=== PATIENT | female | born 2000 | race Caucasian/White ===

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

== ENCOUNTER 2022-03-10 14:34 | Emergency (ER) | payer OTHER, SELFPAY ==
[2022-03-10 14:35] VITALS: BP 132/82; PULSE 100; RESP 18; TEMP 36.7; O2SAT 99; BMI 30.2
[2022-03-10 14:52] VITALS: BMI 30.2
--- NOTE | 2022-03-10 14:54 | XR_ITS ---
PROCEDURE INFORMATION: Exam: XR Chest Exam date and time: 03/10/2022 3:46 PM Age: 21 years old Clinical indication: Cough and shortness of breath; Patient HX: Cough and SOA TECHNIQUE: Imaging protocol: Radiologic exam of the chest. Views: 1 view. COMPARISON: CR XR CHEST 2V 02/10/2020 10:59 PM FINDINGS: Lungs: Unremarkable. No consolidation. Pleural spaces: Unremarkable. No pleural effusion. No pneumothorax. Heart/Mediastinum: Unremarkable. No cardiomegaly. Bones/joints: Unremarkable. IMPRESSION: No acute findings.
[2022-03-10 14:58] LABS: Influenza A, PCR Not Detected (NotDetected); Influenza B, PCR Not Detected (NotDetected)
--- NOTE | 2022-03-10 15:13 | PC.NURSE ---
pt sitting up in bed, nothing needed at this time
--- NOTE | 2022-03-10 15:14 | PC.NURSE ---
DR. GARCIA AT BEDSIDE
--- NOTE | 2022-03-10 15:22 | HMH.EDGENADL ---
Discharge Plan Disposition Patient Disposition: Home, Self-Care Condition: Good Prescriptions Prescriptions: No Action amitriptyline 100 mg tablet 100 mg PO HS Nurtec ODT 75 mg tablet,disintegrating 75 mg PO PRN folic acid 1 mg tablet 2 mg PO DAILY Qty: 30 11RF lamotrigine [Lamictal] 100 mg tablet See Rx Instructions PO DAILY 30 Days Qty: 75 2RF Rx Instructions: 150mg (1.5 tablet) q AM and 100mg (1 tablet) qHS. Schedule important. Avoid missed or late dosages. epinephrine 0.3 MG/0.3 ML auto-injector 0.3 mg IM ONCE PRN (Reason: Allergic Reaction) Qty: 1 0RF Referrals Follow up/Referrals: Provider,Referral, MD [Primary Care Provider] - See instructions Activity Restrictions/Add. Instructions Additional Instructions/Restrictions: ADDITIONAL INSTRUCTIONS FOR COVID-19: Rest, drink plenty of fluids. Tylenol or Ibuprofen for fever and/or aches and pains. Monitor your symptoms. IF YOU HAVE AN EMERGENCY WARNING SIGN (INCLUDING TROUBLE BREATHING), SEEK EMERGENCY MEDICAL CARE IMMEDIATELY. COVID-19 Isolation: People with COVID-19 should isolate for 5 days. Then if they are asymptomatic (no symptoms) or their symptoms are resolving (without fever for 24 hours), follow that by 5 days of wearing a mask when around others to minimize the risk of infecting people you encounter. If you test positive for COVID-19 and never develop symptoms, day 0 is the day of your positive viral test (based on the date you were tested) and day 1 is the first full day after your positive test. If you develop symptoms after testing positive, your 5-day isolation period must start over. Day 0 is your first day of symptoms. Day 1 is the first full day after your symptoms developed. What to do: Stay in a separate room from other household members, if possible. Use a separate bathroom, if possible. Avoid contact with other members of the household and pets. Don?t share personal household items, like cups, towels, and utensils. Wear a mask when around other people if able. Clinical Impressions Clinical Impression: COVID-19 virus infection Instructions Patient Instructions: DI for COVID-19 (Suspected or Confirmed ) Discharge ED Provider: Markus Manzano General Adult HPI General Chief complaint: Shortness of Breath/Dyspnea Stated complaint: Covid+,SOA Time Seen by Provider: 03/10/22 15:00 History of Present Illness HPI narrative: Patient states that she was tested positive for COVID on Friday, 2 days ago. Her chief complaint is shortness of breath. Feels like it is hard to get a deep breath, states she has episodes where she has to gasp for breath. She has a mild cough. No fever. She has some sinus drainage and sore throat. Some mild diarrhea. She has been vaccinated against COVID. Cruise Staff Member reports that patient's father texted her that patient called him and she was hyperventilating on the phone and he felt she was having an anxiety attack. Related Data Home Medications Medication Instructions Recorded Confirmed amitriptyline 100 mg tablet 100 mg PO HS 02/06/21 02/06/21 rimegepant 75 mg disintegrating 75 mg PO PRN 02/06/21 02/06/21 tablet (Nurtec ODT) Previous Rx's Medication Instructions Recorded epinephrine 0.3 mg/0.3 mL 0.3 mg (0.3 mL) IM ONCE PRN 12/06/20 injection, auto-injector Allergic Reaction #1 ea folic acid 1 mg tablet 2 mg PO DAILY epilepsy with 02/06/21 antiseizure medication #30 tabs lamotrigine 100 mg tablet See Rx Instructions PO DAILY 30 02/06/21 (Lamictal) days #75 tabs Allergies Allergy/AdvReac Type Severity Reaction Status Date / Time Penicillins Allergy Severe Swelling Verified 02/06/21 13:05 of Lip/Tongue/Throat PFSH [facility] Disclaimer: The information contained in this section may have been updated after the patient was seen, as this information can be updated by other users. Surgical History (Updated 03/10/22 @ 15:40 by Summer Rebolledo
--- NOTE | 2022-03-10 15:30 | PC.NURSE ---
0259 PT ASKED IF SHE NEEDED CXR, EXPLAINED THAT IT WAS ORDERED BY ED MD FOR SHORTNESS OF BREATH. PT STATES SHE WANTS TO GO HOME. DISCUSSED POC, INFORMED PT CXR COULD HELP WITH CARE. AGREES TO TREATMENT
--- NOTE | 2022-03-10 15:34 | PC.NURSE ---
ROUNDED ON PT, NO NEEDS AT THIS TIME. FAMILY AT BEDSIDE
--- NOTE | 2022-03-10 15:40 | PC.NURSE ---
XR AT BEDSIDE
[2022-03-10 15:45] VITALS: BP 132/82; PULSE 93; O2SAT 98
[2022-03-10 16:03] LABS: Coronavirus 19, PCR Detected (NotDetected)
--- NOTE | 2022-03-10 16:21 | PC.NURSE ---
DR. GARCIA AT BEDSIDE TO DISCUSS POC WITH PT AND FAMILY
--- NOTE | 2022-03-10 16:34 | PC.NURSE ---
PT walked in hallway oxygen sat was 97 on RA, pt tolerated well.
[2022-03-10 16:36] VITALS: BP 132/82; PULSE 85; RESP 18; TEMP 36.7; O2SAT 93
== END 2022-03-10 16:39 | disposition home or self-care (01) ==
PROVIDERS: Emergency Provider Emergency Medicine
DX: U07.1 COVID-19 (principal); J02.9 Acute pharyngitis, unspecified; R06.02 Shortness of breath; R06.4 Hyperventilation; R05.9 Cough, unspecified; R19.7 Diarrhea, unspecified; G40.909 Epilepsy, unspecified, not intractable, without status epilepticus; F17.290 Nicotine dependence, other tobacco product, uncomplicated; F41.9 Anxiety disorder, unspecified; Z79.899 Other long term (current) drug therapy; Z88.0 Allergy status to penicillin
CPT/HCPCS: 71045; 99283; C9803; U0003; U0005

== ENCOUNTER → 2022-08-02 12:26 | Outpatient (CLI) | payer OTHER, SELFPAY | PROVIDERS: Visit Provider Internal Medicine Adolescent Medicine | DX: R56.9 Unspecified convulsions (principal) | CPT/HCPCS: 95819 ==

== ENCOUNTER 2024-02-16 12:39 | Emergency (ER) | payer SELFPAY ==
[2024-02-16 12:50] VITALS: BP 120/82; PULSE 125; RESP 20; TEMP 38.1; O2SAT 98; BMI 31.4
[2024-02-16 13:08] LABS: UTC Influenza A Antigen Negative (Negative); UTC Influenza B Antigen Negative (Negative)
--- NOTE | 2024-02-16 13:14 | ED_ITS ---
Discharge Plan Disposition Patient Disposition: Home, Self-Care Condition: Good Prescriptions Prescriptions: New lvoxljokfdnlsgw-mqhmquinj-JI [Bromfed DM] 2-30-10 mg/5 mL Syrup 5 ml PO Q6H PRN (Reason: Cough) Qty: 240 0RF azithromycin [Zithromax] 250 mg tablet 250 mg PO UD DOSE PK Qty: 6 0RF Rx Instructions: Take two (2) tablets today, then one (1) tablet days #2 thru #5 ondansetron 4 mg Tablet,Disintegrating 4 mg PO Q8H PRN (Reason: Nausea) Qty: 12 0RF Referrals Follow up/Referrals: Provider,Referral, MD [Primary Care Provider] - See instructions Activity Restrictions/Add. Instructions Additional Instructions/Restrictions: Drink plenty of fluids. Take tylenol or ibuprofen for pain or fever. Take the medications as directed. Follow up with your regular doctor. GO TO THE ER FOR ANY WORSENING SYMPTOMS Clinical Impressions Clinical Impression: Bronchitis, Acute viral syndrome, Exposure to 2019 novel coronavirus Stand Alone Forms Stand Alone Forms: Work/School Release Instructions Patient Instructions: Acute Bronchitis, DI for Acute Bronchitis Print Language Print Language: [place] Discharge ED Provider: Graham Malave [facility] General Stated complaint: vomiting, dizziness, soa Mode of Arrival: Ambulatory Source of Information: Patient Limitations: No Limitations Time Seen by Provider: 02/16/24 13:12 Description of Symptoms (Recalled from Triage Doc. by RN): PATIENT C/O FEVER, CHILLS, BODY ACHES, VOMITING, DIZZINESS AND CONGESTION X 6 DAYS HEENT Symptoms (Recalled from RN notes): Yes Resp Symptoms (Recalled from RN notes): No Skin Symptoms (Recalled from RN notes): No MS Symptoms (Recalled from RN notes): No Functional Status (Recalled from RN notes): WNL Related Data Previous Rx's ?Medication ?Instructions ?Recorded azithromycin 250 mg tablet 250 mg PO UD DOSE PK #6 tabs 02/16/24 (Zithromax) qczzbnlgljqxqdy-ltoekxtirbjzkrb-DM 5 ml PO Q6H PRN Cough #240 mL 02/16/24 2 mg-30 mg-10 mg/5 mL oral syrup (Bromfed DM) ondansetron 4 mg disintegrating 4 mg PO Q8H PRN Nausea #12 tabs 02/16/24 tablet Allergies Allergy/AdvReac Type Severity Reaction Status Date / Time Penicillins Allergy Severe Swelling Verified 02/06/21 13:05 of Lip/Tongue/Throat Worker's Comp Is this a Worker's Comp case?: No [facility] Disclaimer: The information contained in this section may have been updated after the patient was seen, as this information can be updated by other users. Surgical History (Updated 03/10/22 @ 15:40 by Smumer Oneal RN) History of appendectomy Family History (Updated 03/10/22 @ 15:40 by Summer Oneal RN) Other No significant family history Social History (Updated 03/10/22 @ 15:40 by Summer Oneal RN) Smoking Status: Current some day smoker tobacco type: e-cigarettes alcohol intake: never substance use type: other current occupational status: student household members: family housing: house current occupation: [employer] current occupational exposures/hazards: No caffeine: Yes ROS Obtained: Yes All systems reviewed & no additional complaints except as documented Constitutional Constitutional: Reports poor appetite Eyes Eyes: Reports system reviewed and no additional complaints, except as documented ENT Ears, Nose, Mouth, and Throat: Reports as per HPI Cardiovascular Cardiovascular: Reports system reviewed and no additional complaints, except as documented and Denies chest pain Respiratory Respiratory: Denies shortness of breath, Reports chest congestion, Reports coug h, Denies stridor and Denies wheezing Gastrointestinal Gastrointestingal: Reports system reviewed and no additional complaints, except as documented; Denies abdominal pain, diarrhea or vomiting Musculoskeletal Musculoskeletal: Reports system reviewed and no additional complaints, except as documented and Denies arthralgias Integumentary/Breasts Skin/Breast: Reports system reviewed and no additional complaints, except as documented and Denies rash Neurologic Neurologic: Denies paresthesias Allergic/Immunologic Allergic/Immunologic: Denies wheezing Physical Exam General General appearance: alert and in no apparent distress Eye Eye exam: Present normal appearance, PERRL and EOMI ENT ENT exam: Present mucous membranes moist and normal external ear exam Expanded ENT Exam External ear exam: Present normal external inspection TM/Canal exam: Bilateral TM: erythema and bulging Nose exam: Absent sinus tenderness Nasal speculum exam: Bilateral: normal Mouth exam: Present normal external inspection; Absent drooling Teeth exam: Present normal inspection Throat exam: Present tonsillar erythema and tonsillomegaly Neck Neck exam: Present normal inspection, full ROM and trachea midline; Absent tenderness, lymphadenopathy or thyromegaly Chest Chest inspection: Present normal inspection and symmetric chest wall rise; Absent tenderness or rash Respiratory Respiratory exam: Present normal lung sounds bilaterally; Absent respiratory distress, wheezes, stridor or accessory muscle use Cardiovascular Cardiovascular exam: Present regular rate, normal rhythm and normal heart sounds Abdominal Exam Abdominal exam: Present soft; Absent distention, tenderness, guarding, rebound or rigidity Extremities Exam Extremities exam: Present normal inspection, full ROM and normal capillary refill; Absent tenderness or calf tenderness Back Exam Back exam: Present normal inspection and full ROM; Absent tenderness Neurological Exam Neurological exam: Present alert and oriented X3 Psychiatric Psychiatric exam: Present normal affect and normal mood Skin Skin exam: Present warm, dry, intact and normal color Lymphatic Lymphatic Findings: no adenopathy Medical Decision Making Medical Records Medical records reviewed: No I reviewed the patient's medical records. Screening: Per USPSTF and CDC recommendations, given the prevalence of disease in our region, it is our hospital?s policy to screen for HIV and viral Hepatitis for all patients aged 18 and over and those with ongoing risk factors. [place] Inquiry Pt receiving controlled substance: No Vital Signs: 02/16/24 12:50 Temperature 100.5 F H Temperature Source Oral Pulse Rate [Left Brachial] 125 H Respiratory Rate 20 Blood Pressure [Left Arm] 120/82 Blood Pressure Mean [Left Arm] 94 Blood Pressure Source [Left Arm] Automatic Cuff Blood Pressure Position [Left Arm] Sitting 02 Sat by Pulse Oximetry 98 Oxygen Delivery Method Room Air Lab Data Lab results reviewed: Yes I reviewed the patient's lab results. Lab Results 02/16/24 12:54: Influenza Type A Ag Negative, Influenza Type B Ag Negative
[2024-02-16 13:36] LABS: UTC Strep Screen (Rapid) Negative (Negative)
[2024-02-16 13:40] VITALS: BP 120/82; PULSE 125; RESP 20; TEMP 38.1; O2SAT 98
[2024-02-16] MEDS: ONDANSETRON 4MG ODT 4 MG SL (13:42)
== END 2024-02-16 13:44 | disposition home or self-care (01) ==
PROVIDERS: Emergency Provider Nurse Practitioner Family
DX: J20.9 Acute bronchitis, unspecified (principal); B34.9 Viral infection, unspecified; Z20.828 Contact with and (suspected) exposure to other viral communicable diseases; R11.10 Vomiting, unspecified; R42 Dizziness and giddiness; R50.9 Fever, unspecified; R09.81 Nasal congestion; R63.8 Other symptoms and signs concerning food and fluid intake
CPT/HCPCS: 87635; 87804; 87880; 99212; G0381; Q0162

== ENCOUNTER 2024-12-28 11:26 | Emergency (ER) | payer OTHER, SELFPAY ==
[2024-12-28 11:30] VITALS: BP 138/84; PULSE 66; RESP 15; TEMP 36.5; O2SAT 100; BMI 29.6
--- OUTSIDE RECORDS SUMMARY | 2024-12-28 11:44 | XMS_ITS | Clinical Summary ---
Author Organization Healthcare Address [address] [place] [address] Care Team Providers Care Lithopress Operator Name Role Phone Sally Pinon APRN Primary Care Provider [phone] Family History Medical History Relation Name Comments Vision loss Other 1 Conversions - Other Other 2 Frequent headaches Relation Name Status Comments Other 1 Other 2 Social History Tobacco Use Types Packs/Day Years Used Date Smoking Tobacco: Never Alcohol Use Standard Drinks/Week Comments No 0 (1 standard drink = 0.6 oz pur e alcohol) Comments Unknown Sex and Gender Information Value Date Recorded Sex Assigned at Not on file Legal Sex Female 6:27 PM EDT Gender Identity Not on file Sexual Orientation Not on file Last Filed Vital Signs Vital Sign Reading Time Taken Comments Blood Pressure - - Pulse - - Temperature - - Respiratory Rate - - Oxygen Saturation - - Inhaled Oxygen Concentration - - Weight 78.3 kg (172 lb 8.9 oz) 10/17/2016 10:20 AM EDT Height 158.8 cm (5' 2.5 ) 10/17/2016 10:20 AM ED T Body Mass Index 31.06 10/17/2016 10:20 AM EDT Plan of Treatment Not on file Care Teams Lithopress Operator Relationship Specialty Start Date End Date Sally Pinon APRN [address] [place], [place] [id number] PCP - General 08/04/20
--- OUTSIDE RECORDS SUMMARY | 2024-12-28 11:44 | XMS_ITS | Clinical Summary ---
Author Organization [facility] Address [address] [place] [address] Phone Care Team Providers Care Chemical Pathologist Name Role Phone Unavailable Primary Care Provider Unavailabl e Allergies Active Allergy Reactions Criticality Noted Date Comments Penicillins Other (See Comments) Low 04/05/2021 States occurred as infant, unsure of reaction-04/05/2021 Medications lamoTRIgine (LAMICTAL) 100 mg Oral Tablet 02/06/2021 Active Medical History Medical History Date Comments Seizures (HCC) states started a t age [age] years old Social History Tobacco Use Types Packs/Day Years Used Date Smoking Tobacco: Never Smokeless Tobacco: Never Comments No Sex and Gender Information Value Date Recorded Sex Assigned at Not on file Legal Sex Female 2:19 PM EST Gender Identity Not on file Sexual Orientation Not on file Last Filed Vital Signs Vital Sign Reading Time Taken Comments Blood Pressure 98/80 04/05/2021 2:37 PM EST Pulse 108 04/05/2021 2:37 PM EST Temperature 36.8 C (98.2 F) 04/05/2021 2:37 PM EST Respiratory Rate 14 04/05/2021 2:37 PM EST Oxygen Saturation 98% 04/05/2021 2:37 PM EST Inhaled Oxygen Concentration - - Weight 81.2 kg (179 lb) 04/05/2021 2:37 PM EST Height 159.4 cm (5' 2.76 ) 04/05/2021 2:37 PM ES T WITH SHOES Body Mass Index 31.96 04/05/2021 2:37 PM EST Plan of Treatment Health Maintenance Due Date Last Done Comments Annual Wellness Exam 2005 HPV (2 - 2-dose series) 04/30/2015 10/28/2014, 10/28 Meningococcal B Vaccine (1 of 2 - Standard) 2018 Cervical Cancer Screening 08/05/2023 Pap Smear 08/05/2023 DTaP/TDaP/Td (7 - Td or Tdap) 10/28/2024 10/28/2014, 09/09/2006, 09/09/2006, Additional history exists COVID-19 Vaccine ( season) 2024 Influenza Vaccine (#1) 2024 2002 Hepatitis B Vaccine Completed 08/10/2003, 08/10/2003, 05/11/2003, Additional history exists Pneumococcal Vaccine 0-49 Aged Out No longer eligible based on patient's age to complete [place] [phone]
--- OUTSIDE RECORDS SUMMARY | 2024-12-28 11:44 | XMS_ITS | Clinical Summary ---
Author Organization [facility] Address [address] [place] [id number] Care Team Providers Care Director Of Neighborhood Service Center Name Role Phone Sally Pinon LEAD PAINTER-ATM SERVICER Primary Care Provider Source Comments [facility] is fully rolled out with thefollowing exceptions:General Clinical Research [facility] Social History Tobacco Use Types Packs/Day Years Used Date Smoking Tobacco: Never Assessed Comments Unknown Sex and Gender Information Value Date Recorded Sex Assigned at Not on file Legal Sex Female 11:34 AM EDT Gender Identity Not on file Sexual Orientation Not on file Plan of Treatment Health Maintenance Due Date Last Done Comments MMR IMMUNIZATION (1 of 1 - S tandard series) 08/05/2003 DTAP/Tdap/Td IMMUNIZATION (1 - Tdap) 2009 VARICELLA IMMUNIZATION (1 of 2 - 13+ 2-dose series) 08/05/2015 HPV IMMUNIZATION (1 - 3-dose series) 2017 MENINGOCOCCAL B VACCINE (1 o f 2 - Standard) 2018 HEPATITIS B IMMUNIZATION (1 of 3 - 19+ 3-dose series) 2021 AMB SEASONAL FLU VACCINE (#1) 11/22/2024 COVID-19 Vaccine ( - 2023-2 5 season) 2024 HIB IMMUNIZATION Aged Out No longer e ligible based on patient's age to complete this topic IPV IMMUNIZATION Aged Out No longer e ligible based on patient's age to complete this topic MCV4 IMMUNIZATION Aged Out No longer eligible based on patient's age to complete this topic PNEUMOCOCCAL IMMUNIZATION Aged Out No longer eligible based on patient's age to complete this topic Respiratory Syncytial Virus (RSV) <20mo Aged Out No longer eligible b ased on patient's age to complete this topic Insurance [place], [place] [id number] [place] [address] on file Care Teams Director Of Neighborhood Service Center Relationship Specialty Start Date End Date Sally iPnon, LEAD PAINTER-YU [address] [place] [address] PCP - General 08/15/16
--- NOTE | 2024-12-28 12:00 | ED_ITS ---
<Statement entered by Peter Burnett DO - 12/29/24 16:55> I was consulted by the SHAHIDA, and we discussed the complexity of problems being addressed. I approved the treatment and management plan for this patient's care in the emergency department, thus performing a substantive portion of the medical decision making. I evaluated this patient with the midlevel provider. She presented with right mandibular pain. She does not have any difficulty tolerating secretions, no change in the character of her voice, no nuchal rigidity, no difficulty with vertical or lateral rotation of the neck. She has no fevers. No headaches. She does not have any difficulty with swallowing. On physical examination she has tenderness along the right mandibular gumline with no fluctuance to suggest periapical abscess. She has no evidence of facial cellulitis on examination. Her tonsils are absent. There is no asymmetric bulging of the tonsillar pillars. Uvula is midline. She has very poor dentition with multiple caries along the right mandibular teeth. I have very low suspicion for retropharyngeal abscess at this time. We discussed risk and benefits of CT scans and ultimately decided to not pursue workup with CT scans. There was no significant swelling of the face to warrant this. We ultimately decided on performing an inferior alveolar nerve block on the right as well as a periosteal block of the mandibular teeth. We gave further information for the walk-in dentistry clinic at the [facility] and discharged her home with a Medrol Dosepak for reduction of inflammation as well as clindamycin given that she was allergic to penicillins for treatment of dental infection. At this time all questions were answered and all parties were agreeable Peter Burnett DO Discharge Plan Disposition Patient Disposition: Home, Self-Care Prescriptions Prescriptions: New clindamycin HCl [Cleocin HCl] 300 mg capsule 300 mg PO Q8H 7 Days Qty: 21 0RF prednisone 20 mg tablet 20 mg PO BID 7 Days Qty: 14 0RF No Action kvoopdzflwepmnd-tqoziubzc-FV [Bromfed DM] 2-30-10 mg/5 mL Syrup 5 ml PO Q6H PRN (Reason: Cough) Qty: 240 0RF azithromycin [Zithromax] 250 mg tablet 250 mg PO UD DOSE PK Qty: 6 0RF Rx Instructions: Take two (2) tablets today, then one (1) tablet days #2 thru #5 ondansetron 4 mg Tablet,Disintegrating 4 mg PO Q8H PRN (Reason: Nausea) Qty: 12 0RF Referrals Follow up/Referrals: Ricardo Holley MD [Primary Care Provider, Internal Medicine] - See instructions Activity Restrictions/Add. Instructions Additional Instructions/Restrictions: Increase fluids and rest. Take meds as directed. May take Tylenol and ibuprofen for pain as needed. Clinical Impressions Clinical Impression: Dental abscess Instructions Patient Instructions: DI for Tooth Abscess, DI for Dental Pain Print Language Print Language: Japanese Discharge ED Provider: Peter Burnett General Adult HPI <Hariniisa Perez (ED), AIR POLLUTION ENGINEER - Last Filed: 12/28/24 12:41> General Chief complaint: Dental/Oral Stated complaint: Rt side neck pain Time Seen by Provider: 12/28/24 11:41 Mode of Arrival: Ambulatory Source of Information: Patient Description of Symptoms (Recalled from ER Triage Doc. by RN): patient presents to the ED for a right sided tooth abcess. she noticed it 9 days ago. she was sent from her doctors office for further evaluation. she ahs not been prescribed anythign for the abcess. History of Present Illness HPI narrative: 24-year-old female presents to the ED today for complaint of right sided tooth abscess. She noticed it 9 days ago. She was sent for her doctor's office for further evaluation. They were concerned that she might have further abscess. She has had fevers of 101.7 the last fever was 2 days ago. She has had no vomiting or diarrhea. She has had some chills. She has not checked her temp since 2 days ago. She called her dentist and got a dentist appointment at the end of January. She has not been given any medication for the abscess. She is having difficulty opening mouth but she is able to do it with pain. She is having difficulty eating but able to drink. Related Data Previous Rx's ?Medication ?Instructions ?Recorded azithromycin 250 mg tablet 250 mg PO UD DOSE PK #6 tab s 02/16/24 (Zithromax) whkmngyybxxmctr-keplorupkzkigga-[place] 5 ml PO Q6H PRN Cou gh #240 mL 02/16/24 2 mg-30 mg-10 mg/5 mL oral syrup (Bromfed DM) ondansetron 4 mg disintegrating 4 mg PO Q8H PRN Nausea #12 tabs 02/16/24 tablet clindamycin HCl 300 mg capsule 300 mg PO Q8H 7 days #2 1 caps 12/28/24 (Cleocin HCl) prednisone 20 mg tablet 20 mg PO BID 7 days #14 tabs 12/28/24 Allergies Allergy/AdvReac Type Severity Reaction Status Date / Time Penicillins Allergy Severe Swelling Verified 02/06/21 13:05 of Lip/Tongue/Throat PFSH <Harini Perez (ED), AIR POLLUTION ENGINEER - Last Filed: 12/28/24 12:41> PFSH Disclaimer: The information contained in this section may have been updated after the patient was seen, as this information can be updated by other users. Surgical History (Updated 03/10/22 @ 15:40 by Summer Oneal RN) History of appendectomy Family History (Updated 03/10/22 @ 15:40 by Summer Oneal RN) Other No significant family history Social History (Updated 02/16/24 @ 14:32 by Graham Malave APRN) Smoking Status: Current some day smoker tobacco type: e-cigarettes alcohol intake: never substance use type: other current occupational status: student Travel in the last 8 weeks?: None household members: family housing: house current occupation: [employer] current occupational exposures/hazards: No caffeine: Yes Have you lived/traveled outside US in past 30 days?: No Contact w/someone who lives/traveled outside US past 30 days?: No Exposure to someone with infectious disease in past 14 days?: No Do you have a fever (greater than 100.4 F or 38 C)?: No Have you tested positive for COVID-19?: No Exposed to someone with COVID-19 in past 14 days?: No Do you have a sore throat?: No Do you have a cough?: No Do you have any weakness?: No Do you have any diarrhea?: No Are you experiencing any unusual bleeding?: No Do you have any muscle aches/pain?: No Do you have any abdominal pain?: No Are you experiencing loss of taste or smell?: No Other Medical History Have you received the Flu Vaccine for this season: Yes Have you received the Pneumonia Vaccine: No <Harini Perez (ED), AIR POLLUTION ENGINEER - Last Filed: 12/28/24 12:41> ROS Obtained: Yes Systems reviewed as appropriate & no additional complaints except as documented Constitutional Constitutional: Reports as per HPI Physical Exam <Harini Perez (ED), AIR POLLUTION ENGINEER - Last Filed: 12/28/24 12:41> General General appearance: alert Head Head exam: normocephalic Eye Eye exam: Present PERRL and EOMI ENT ENT exam: Present mucous membranes moist and other (Erythema on the right lower,) Neck Neck exam: Present full ROM and trachea midline Respiratory Respiratory exam: Present normal lung sounds bilaterally Cardiovascular Cardiovascular exam: Present regular rate, normal rhythm, normal heart sounds, +S1 and +S2 Extremities Exam Extremities exam: Present normal inspection, full ROM and normal capillary refill Neurological Exam Neurological exam: Present alert and oriented X3 Skin Skin exam: Present warm, dry and intact Medical Decision Making <Harini Perez (ED), AIR POLLUTION ENGINEER - Last Filed: 12/28/24 12:41> Medical Records Screening: Per USPSTF and CDC recommendations, given the prevalence of disease in our region, it is our hospital?s policy to screen for HIV and viral Hepatitis for all patients aged 18 and over and those with ongoing risk factors. Cruzito Inquiry Pt receiving controlled substance: No Cruzito was queried for this patient: No Vital Signs: 12/28/24 11:30 12/28/24 12:51 Temperature 97.7 F 98.4 F Temperature Source Oral Oral Pulse Rate 78 Pulse Rate [Right Radial] 66 Respiratory Rate 15 15 Blood Pressure 128/84 Blood Pressure [Right Arm] 138/84 Blood Pressure Mean [Right Arm] 102 Blood Pressure Source Automatic Cuff Blood Pressure Source [Right Arm] Automatic Cuff Blood Pressure Position Supine Blood Pressure Position [Right Arm] Sitting 02 Sat by Pulse Oximetry 100 Oxygen Delivery Method Room Air Room Air Orders (Tests/Meds): ED MEDICATIONS Discontinued Medications Generic Name Dose Route Start Last Admin Trade Name Freq PRN Reason Stop Dose Admin Lidocaine/Epinephrine 5 ml 12/28/24 11:59 12/28/24 12:25 Lidocaine 1% W/Epi 1:100,000 20ml Vial SQ 12/28/24 12:00 5 ml ONCE ONE Administration Medical Decision Narrative: patient is a 24-year-old female presenting to the emergency department for evaluation of dental pain. Patient is hemodynamically stable and nontoxic- appearing upon arrival, afebrile. Differential diagnosis includes dental abscess. No workup needs to be conducted as this is a periapical abscess. Patient has been examined by myself and Dr. Burnett. Patient is currently afebrile. We will do a dental block for comfort and steroid for comfort. Patient will be safe for discharge home., And place patient on Augmentin <Peter Burnett DO - Last Filed: 12/29/24 16:56> Medical Records Medical records reviewed: Yes I reviewed the patient's medical records. Vital Signs: 12/28/24 11:30 12/28/24 12:51 Temperature 97.7 F 98.4 F Temperature Source Oral Oral Pulse Rate 78 Pulse Rate [Right Radial] 66 Respiratory Rate 15 15 Blood Pressure 128/84 Blood Pressure [Right Arm] 138/84 Blood Pressure Mean [Right Arm] 102 Blood Pressure Source Automatic Cuff Blood Pressure Source [Right Arm] Automatic Cuff Blood Pressure Position Supine Blood Pressure Position [Right Arm] Sitting 02 Sat by Pulse Oximetry 100 Oxygen Delivery Method Room Air Room Air Orders (Tests/Meds): ED MEDICATIONS Discontinued Medications Generic Name Dose Route Start Last Admin Trade Name Dereck PRN Reason Stop Dose Admin Lidocaine/Epinephrine 5 ml 12/28/24 11:59 12/28/24 12:25 Lidocaine 1% W/Epi 1:100,000 20ml Vial SQ 12/28/24 12:00 5 ml ONCE ONE Administration Procedures <Peter Burnett DO - Last Filed: 12/29/24 16:56> Nerve Block Nerve Block 1: Time out performed: Yes Local Anesthetic: lidocaine 1% Amount of anesthesia used (mL): 8 Side: Right Intraoral Nerve Block: inferior alveolar and other (Periosteal) Procedure Successful: Yes Patient Tolerated Procedure: well and no complications Complications: none Critical Care <Harini Perez (ED), AIR POLLUTION ENGINEER - Last Filed: 12/28/24 12:41> Critical Care Time Critical Care Time: No
[2024-12-28] MEDS: LIDOCAINE 1% W/EPI 1:100,000 20ML VIAL 5 ML SQ (12:25)
[2024-12-28 12:51] VITALS: BP 128/84; PULSE 78; RESP 15; TEMP 36.9; O2SAT 100
== END 2024-12-28 12:52 | disposition home or self-care (01) ==
PROVIDERS: Emergency Provider Student in an Organized Health Care Education/Training Program; PCP Internal Medicine Adolescent Medicine
DX: R50.9 Fever, unspecified (principal); K04.7 Periapical abscess without sinus; F17.290 Nicotine dependence, other tobacco product, uncomplicated
CPT/HCPCS: 99283; J2004